=== PATIENT | female | born 1980 | race Caucasian/White ===

== ENCOUNTER → 2017-04-05 15:10 | Observation (INO) ==
[2017-04-05 12:56] LABS: Bilirubin,Urine Negative (Negative); Blood,Urine Negative (Negative); Clarity,Urine Clear (Clear); Color,Urine Yellow (Yellow); Glucose,Urine (UA) Normal (Normal); Ketones,Urine Negative (Negative); Leukocyte Esterase,Urine Moderate (Negative); Nitrite,Urine Negative (Negative); Protein,Urine Trace mg/dL (Neg-Trace); Urobilinogen,Urine Normal (Normal)
--- NOTE | 2017-04-05 12:56 | OB/GYN Progress Note ---
Date of Encounter: 04/05/17 Time of Encounter: 12:53 - Assessment and Plan (1) with 37 or more completed weeks gestation Current Visit: Yes Status: Acute (2) related low back pain in third trimester, antepartum Current Visit: Yes Status: Acute Subjective - Subjective Principal diagnosis: gestation at 37;Low back pain Interval history: Patient is a 36F at 37+1 GA with PMHx of IUGR fetus and patient has brain tumors presenting to L&D for low back pain that has been going on for 5 days. Patient states the pain is stabbing/aching, came on gradually and worsened by movement. Patient denies any numbness or tingling in the lower extremities and no difficulty with bowel or bladder incontinence or ambulation. Patient reports positive movement. Denies headache, vision changes, epigastric pain or edema. Denies vaginal bleeding. Denies gush of fluid, states she has noticed some clear fluid when she sneezes or coughs. Denies feeling contractions. Antepartum ROS: new complaints, movement normal, no loss of fluid, no vaginal bleeding, no contractions Objective - Vital Signs Vital Signs: Intake and Output 04/04/17 04/05/17 04/05/17 23:59 07:59 15:59 Other: Weight 74.2 kg Patient Weight 04/05/17 23:59 Weight 74.2 kg - Exam FHR: auscultation normal, category 1 FHR comments: FHR 125 bpm moderate variability +15x15 accels no decels noted. Cat. 1 tracing. Auscultation: bilateral: normal Abdomen: Present: normal appearance, soft, gravid Uterus: Present: normal, firm Cervical dilation: 2-3 Cervix effacement: 60 Comments: I examined this patient and my medical decision-making was reviewed with the Resident Physician. I agree with the documented findings, disposition and treatment plan as described except to the extent set forth below. SHAILA Lagunas
[2017-04-05 13:13] LABS: Amphetamine Screen,Urine Negative ng/mL (Cutoff=1000); Barbiturate Screen,Urine Negative ng/mL (Cutoff=200); Benzodiazepines Screen,Urine Negative ng/mL (Cutoff=200); Cannabinoid Screen,Urine Negative ng/mL (Cutoff = 50); Cocaine Screen,Urine Negative ng/mL (Cutoff= 300); Opiate Screen,Urine Negative ng/mL (Cutoff=300); Phencyclidine Screen,Urine Negative ng/mL (Cutoff=25)
[2017-04-05 13:15] LABS: Bacteria,Urine Many per hpf (None-Few); Mucus,Urine Few (Few); Squamous Epithelial Cell,Urine Many per lpf (None-Few)
[2017-04-05 13:16] LABS: Amorphous Sediment,Urine Few (Few); WBC,Urine 0-3 per hpf (0-3)
--- NOTE | 2017-04-05 15:04 | Discharge Summary ---
Date of Encounter: 04/05/17 Time of Encounter: 15:03 - Discharge Diagnosis (1) with 37 or more completed weeks gestation Priority: Primary Status: Acute Comments: patient admitted for observation (2) related low back pain in third trimester, antepartum Priority: Secondary Status: Acute Comments: r/o labor false labor at this time (3) NST (non-stress test) reactive on surveillance Priority: Secondary Status: Acute Comments: baseline 125 bpm moderate variability +15x15 accels no decels Cat. 1 tracing - Discharge Medications Home Medications: Ferrous Sulfate [Iron] 1 tab PO BID 04/05/17 [History] Vit Calc,Iron,Folic [ Vitamins] 1 tab PO DAILY 04/05/17 [ History] Allergies/Adverse Reactions: 3 Allergy/AdvReac Type Severity Reaction Status Date / Time No Known Allergies Allergy Verified 04/05/17 12:18 Data Procedures and tests throughout hospitalization: Laboratory Tests 04/05/17 04/05/17 12:39 12:39 Urine Color Yellow Urine Clarity Clear Urine pH 7.0 Ur Specific [place] 1.020 Urine Protein Trace Urine Glucose (UA) Normal Urine Ketones Negative Urine Blood Negative Urine Nitrite Negative Urine Bilirubin Negative Urine Urobilinogen Normal Ur Leukocyte Esterase Moderate H Urine Microscopic WBC 0-3 Ur Squamous Epith Cells Many H Amorphous Sediment Few Urine Bacteria Many H Urine Mucus Few Ur Culture Indicated? YES A Urine Opiates Screen Negative Ur Barbiturates Screen Negative Ur Phencyclidine Scrn Negative Ur Amphetamines Screen Negative U Benzodiazepines Scrn Negative Urine Cocaine Screen Negative U Marijuana (THC) Screen Negative Labs on day of discharge: Labs from last 24 hours 04/05/17 04/05/17 12:39 12:39 Urine Color Yellow Urine Clarity Clear Urine pH 7.0 Ur Specific [place] 1.020 Urine Protein Trace Urine Glucose (UA) Normal Urine Ketones Negative Urine Blood Negative Urine Nitrite Negative Urine Bilirubin Negative Urine Urobilinogen Normal Ur Leukocyte Esterase Moderate H Urine Microscopic WBC 0-3 Ur Squamous Epith Cells Many H Amorphous Sediment Few Urine Bacteria Many H Urine Mucus Few Ur Culture Indicated? YES A Urine Opiates Screen Negative Ur Barbiturates Screen Negative Ur Phencyclidine Scrn Negative Ur Amphetamines Screen Negative U Benzodiazepines Scrn Negative Urine Cocaine Screen Negative U Marijuana (THC) Screen Negative Date of admission: 04/05/17 11:45 Primary care physician: Fernie Overton Discharging clinician: Lauren Bowen Anticipated date of discharge: 04/05/17 - Patient Status Disposition: Home, Self-Care Condition: Good - Discharge Instructions Follow Up With: Fernie Overton DO [Primary Care Provider] - Alysha Schwartz MD [Partnered Physician] - - Diet and Activity Activity: increase activity as tolerated Diet: regular diet Hospital Course [facility] Time Attestation: Total time spent providing and/or coordinating discharge services: Time Spent: Less than 30 minutes Exam - Constitutional General appearance IM: A&O X 3, pleasant, answers questions appropriately - VTE Reasons for not Prescribing Prophylaxis: Treatment not Indicated - Low risk for VTE
== END | disposition home or self-care (01) ==
LOC: 1NENULAB
PROVIDERS: ADMIT Obstetrics & Gynecology; ATTEND Obstetrics & Gynecology

== ENCOUNTER 2017-04-16 12:35 | Inpatient (IN) ==
[2017-04-16] MEDS ORDERED: Naloxone 0.4 MG/ML INJ IVP PRN (13:11)
[2017-04-16] MEDS ORDERED: Famotidine 20 MG/2 ML VIAL IVP PRN (13:11)
[2017-04-16] MEDS ORDERED: Ondansetron 4 MG/2 ML VIAL IVP PRN (13:11)
[2017-04-16] MEDS ORDERED: Penicillin G Potassium 5,000,000 UNIT in 0.9 % Sodium Chloride Mini Bag 100 ML IVPB ONE (13:14)
[2017-04-16 13:26] LABS: Basophils % 0.4 %; Hematocrit 34.7 % (35.3-44.9); Hemoglobin 11.4 g/dL (11.5-15.4); Immature Granulocytes % 0.4 % (0-4); Lymphocytes # 0.8 K/mcL (0.6-4.6); Lymphocytes % 11.9 %; Mean Corpuscular HGB Conc 32.9 g/dL (31.6-35.5); Mean Corpuscular Hemoglobin 28.9 pg (28.0-33.3); Mean Corpuscular Volume 88.1 fL (83.0-100.0); Mean Platelet Volume 11.8 fL (9.4-12.4); Monocytes # 0.7 K/mcL (0.0-1.3); Monocytes % 10.3 %; Neutrophils # 5.2 K/mcL (1.6-8.9); Platelet Count 182 K/mcL (140-400); Red Blood Count 3.94 M/mcL (3.82-4.97); Red Cell Distribution Width 14.3 % (11.5-14.5)
[2017-04-16] MEDS ORDERED: Oxytocin 20 units/ LR 1000 mL 20 UNIT/1,000 ML BAG IVC SCH (13:45)
--- NOTE | 2017-04-16 14:14 | OB/GYN History & Physical ---
Date of Encounter: 04/16/17 Time of Encounter: 14:12 Assessment and Plan (1) IUGR (intrauterine growth restriction) affecting care of mother Current visit: Yes Status: Acute Admit to labor and delivery for IOL due to abnormal umbilical artery dopplers in the presence of IUGR at 38w5d. Plan for cytotec induction. GBS positive: PNC ppx. Anesthesia consulted for assessment and plan related to meningiomas. POC per Dr. Jeffers Qualifiers: Fetus number: single or unspecified fetus Trimester: third trimester Qualified Code(s): O36.5930 - Maternal care for other known or suspected poor growth, third trimester, not applicable or unspecified (2) 38 weeks gestation of Current visit: Yes Status: Acute (3) Meningioma, multiple Current visit: Yes Status: Acute History of Present Illness HPI: Ms. Miranda is a 36 year old female presenting for IOL due to elevated dopplers on ultrasound today. SHe has been followed for IUGR with NST's and BPP' s with dopplers since 36 weeks when she had a growth scan for S<D that showed EFW 2333 grams 5lb 2oz 18.9%, fetus is IUGR, AC<10%. Today her umbilical artery dopplers were 95% with S/D ratio 3.05 and RI 0.67. BPP was 8/8. This has also been complicated by a subjectively dilated aorta on anatomy US and maternal meningioma. She saw M for the dilated aorta and there was no dilation noted on their US. The patient was also seen by neurology for history of meningioma. She had an MRI in this that showed a right occipital meningioma measuring 12mm as well as a smaller meningioma arising from the posterior superior falx just right of the midline. Today she reports feeling well with no complaints. Good FM. Blood type O positive Rubella immune Serologies negative Glucola 140, 3 hour GTT normal GBS POSITIVE Past Med Surg Social Fam HX - Past Medical History Medical history: hyperlipidemia, migraine Psychiatric history: no psych history - Past Surgical History Surgical History: appendectomy - Social History Smoking Status: Never smoker Smokeless Tobacco Status: No Alcohol use: none Drug use: none - Family History Mother Adopted: No Living Status: Hx Family Cardiac Disorders: No Hx Family Respiratory Disorders: No Hx Family Cancer: Yes (Brain) Hx Family GI Disorders: No Hx Family Genitourinary Disorders: No Hx Family Endocrine Disorder: No Hx Family Musculoskeletal Disorders: No Hx Family Neuromuscular Disorders: No Hx Family Neurologic Disorders: No Hx Family HEENT Disorders: No Hx Family Autoimmune Disorders: No Hx Family Reproductive Disorders: No Hx Family Psychosocial Disorders: No Hx Family Medical Disorders: No Obstetrical History - Pregnancies : 1 Medications and Allergies Ferrous Sulfate [Iron] 1 tab PO BID 04/05/17 [History] Vit Calc,Iron,Folic [ Vitamins] 1 tab PO DAILY 04/05/17 [ History] 3 Allergy/AdvReac Type Severity Reaction Status Date / Time No Known Allergies Allergy Verified 04/05/17 12:18 Review of System OB All systems PM: reviewed and no additional remarkable complaints except as stated Exam - Constitutional Constitutional: well developed, well nourished, no acute distress - HEENT HEENT: Mucus Membranes Moist - Lungs Respiratory exam: CTAB - Cardiovascular Cardiovascular exam: RRR, +S1, +S2 - Abdomen Abdomen: Present: gravid, non tender - Extremities Extremities exam: normal inspection, pedal edema (mild edema bilaterally) - Vagina Vagina: Present: normal moisture - Cervix Dilation: 3 (in office per Dr. Schwartz) - Anus/Rectum Anus/Rectum: Present: normal perianal skin Results Result Diagrams: 04/16/17 13:10 Abnormal lab results Hgb 11.4 g/dL (11.5-15.4) L 04/16/17 13:10 Hct 34.7 % (35.3-44.9) L 04/16/17 13:10 All other labs normal. - VTE Reasons for not Prescribing Prophylaxis: Treatment not Indicated - Low risk for VTE
[2017-04-16] MEDS: Ringers Solution, Lactated 1,000 ML IVC SCH ×2 (14:54→22:02)
[2017-04-16 15:33] LABS: Amphetamine Screen,Urine Negative ng/mL (Cutoff=1000); Barbiturate Screen,Urine Negative ng/mL (Cutoff=200); Benzodiazepines Screen,Urine Negative ng/mL (Cutoff=200); Cannabinoid Screen,Urine Negative ng/mL (Cutoff = 50); Cocaine Screen,Urine Negative ng/mL (Cutoff= 300); Opiate Screen,Urine Negative ng/mL (Cutoff=300); Phencyclidine Screen,Urine Negative ng/mL (Cutoff=25)
[2017-04-16] MEDS ORDERED: miSOPROStol 100 MCG TABLET PO STA (15:58)
[2017-04-16] MEDS: Penicillin G Potassium 2,500,000 UNIT in D5% in Water 100 ML IVPB SCH ×2 (19:23→23:19)
[2017-04-16] MEDS ORDERED: GuaiFENesin Liq 200 MG/10 ML UDC PO PRN (19:37)
[2017-04-16] MEDS: Oxytocin 20 units/ LR 1000 mL 20 UNIT/1,000 ML BAG IVC SCH (20:46)
[2017-04-16] MEDS ORDERED: Acetaminophen 325 MG TABLET PO ONE (21:44)
[2017-04-17] MEDS: *HR* Nalbuphine 20 MG/ML AMPUL IVP PRN ×2 (00:22→02:39)
--- NOTE | 2017-04-17 01:41 | OB Labor Progress Note ---
Date of Encounter: 04/17/17 Time of Encounter: 01:39 Labor Progress Note - Subjective Subjective: Pt reports pain has improved with Nubain. - Cervix Cervix: 4-5/90/-1 - Heart Tones Heart Tones: Category I - [place]: 1.5-2.5 minutes - Interventions Interventions: AROM for moderate amount clear fluid. IUPC and FSE placed. - Plan Plan: Continue to monitor and titrate pitocin. Pt may have second dose of Nubain when needed. Anticipate .
[2017-04-17] MEDS: Penicillin G Potassium 2,500,000 UNIT in D5% in Water 100 ML IVPB SCH (04:33)
[2017-04-17] MEDS ORDERED: *HR* FentaNYL (PF) 100 MCG/2 ML VIAL IVP ONE (05:16)
[2017-04-17] MEDS ORDERED: *HR* FentaNYL (PF) 250 MCG/5 ML VIAL ONE (05:32)
[2017-04-17] MEDS ORDERED: Lidocaine 1% 20 ML MDV ONE (05:42)
--- NOTE | 2017-04-17 06:17 | OB/GYN Procedure Note ---
Delivery - Delivery Date: 04/17/17 Provider: Tati Klein Intrapartum events: none Delivery induction: misoprostol Delivery augmentation: rupture of membranes, pitocin Delivery monitor: internal FHT, internal uterine Anesthesia: intravenous Estimated Blood Loss: 400 - Infant (s) A Infant Delivery Date: 04/17/17 Delivery Time: 05:52 Position: RUTH Route of delivery: Gender: Female Viability: Viable Pounds: 6 Ounces: 8 Weight Gram: 2950 kg at 1 minute: 8 at 5 mins: 9 Shoulder Dystocia: not encountered Specimens collected: cord blood Placenta: spontaneous Cord: 3 umbilical vessels, nuchal reduced (nuchal x2 loose) - Repair Episiotomy: none Laceration Description: None - Complications Delivery complications: uterine atony Delivery comments: Pt progressed to complete and pushed effectively to over intact perineum for viable female "Alia" weighing 6lbs 8oz with apgars 8 at one minute and 9 at five minutes. After pulsations ceased the cord was clamped and cut and the placenta delivered spontaneous and intact. Some uterine atony was noted following delivery of the placenta and one dose of IM Methergine was given in addition to pitocin. Bimanual compression was held until the atony resolved. EBL 400ml. Mother and baby stable in kangaroo care following delivery. - Disposition Mom disposition: stable in LDR [place] disposition: stable in LDR
[2017-04-17] MEDS: Oxytocin 20 units/ LR 1000 mL 20 UNIT/1,000 ML BAG IVC SCH (06:36)
[2017-04-17] MEDS ORDERED: Benzocaine/Menthol 56 GM AEROSOL SPRAY TP PRN (09:03)
[2017-04-17] MEDS ORDERED: Methylergonovine 0.2 MG/ML AMPUL IM ONE (09:03)
[2017-04-17] MEDS ORDERED: Lanolin 28 GM TUBE TP PRN (09:03)
[2017-04-17] MEDS ORDERED: Measles/Mumps/Rubella Vacc 0.5 ML VIAL SQ PRN (09:03)
[2017-04-17] MEDS ORDERED: Acetaminophen 325 MG TABLET PO PRN (09:03)
[2017-04-17] MEDS ORDERED: Oxytocin 20 units/ LR 1000 mL 20 UNIT/1,000 ML BAG IVC SCH (09:03)
[2017-04-17] MEDS: Prenatal Vit/FA 1 EACH TABLET PO SCH (09:18)
[2017-04-17] MEDS ORDERED: Famotidine 20 MG TABLET PO PRN (09:30)
[2017-04-17] MEDS ORDERED: Lanolin 7 G OINT...G. TP PRN (10:00)
[2017-04-17] MEDS: Ibuprofen 600 MG TABLET PO PRN (20:30)
[2017-04-18] MEDS: Ibuprofen 600 MG TABLET PO PRN (09:03)
[2017-04-18] MEDS: Prenatal Vit/FA 1 EACH TABLET PO SCH (09:04)
[2017-04-18 09:10] VITALS: BP 127/86
--- NOTE | 2017-04-18 09:15 | Discharge Summary ---
Date of Encounter: 04/18/17 Time of Encounter: 09:12 - Discharge Diagnosis (1) Status post vaginal delivery Priority: Primary Status: Acute Comments: Pt doing well on PPD#1 s/p Pain controlled. Ambulating well, tolerating po intake, voiding well Pt may be discharged home (2) IUGR (intrauterine growth restriction) affecting care of mother Priority: Secondary Status: Acute Qualifiers: Fetus number: single or unspecified fetus Trimester: third trimester Qualified Code(s): O36.5930 - Maternal care for other known or suspected poor growth, third trimester, not applicable or unspecified (3) 38 weeks gestation of Priority: Secondary Status: Acute (4) Meningioma, multiple Priority: Secondary Status: Acute - Discharge Medications Prescriptions: Lanolin [Lansinoh] 1 appl TP Q4HR PRN #1 oint...g. PRN Reason: Ibuprofen [Motrin] 600 mg PO Q6HR PRN #60 tablet PRN Reason: Cramping Benzocaine/Menthol [place] [Dermoplast [place]] 1 appl TP QID PRN #1 aerosol PRN Reason: See Comments Docusate [Colace] 100 mg PO BID #60 capsule Home Medications: Ferrous Sulfate [Iron] 1 tab PO BID 04/05/17 [History] Vit Calc,Iron,Folic [ Vitamins] 1 tab PO DAILY 04/05/17 [ History] Benzocaine/Menthol [place] [Dermoplast [place]] 1 appl TP QID PRN #1 aerosol [Rx] Docusate [Colace] 100 mg PO BID #60 capsule 04/18/17 [Rx] Ibuprofen [Motrin] 600 mg PO Q6HR PRN #60 tablet 04/18/17 [Rx] Lanolin [Lansinoh] 1 appl TP Q4HR PRN #1 oint...g. 04/18/17 [Rx] Allergies/Adverse Reactions: 3 Allergy/AdvReac Type Severity Reaction Status Date / Time No Known Allergies Allergy Verified 04/05/17 12:18 Data Procedures and tests throughout hospitalization: Laboratory Tests 04/16/17 04/16/17 13:10 15:10 WBC 6.7 RBC 3.94 Hgb 11.4 L Hct 34.7 L MCV 88.1 MCH 28.9 MCHC 32.9 RDW 14.3 Plt Count 182 MPV 11.8 Immature Gran % 0.4 Seg Neutrophils % 77.0 Lymphocytes % 11.9 Monocytes % 10.3 Eosinophils % 0.0 Basophils % 0.4 Neutrophils # 5.2 Lymphocytes # 0.8 Monocytes # 0.7 Eosinophils # 0.0 Basophils # 0.0 Urine Opiates Screen Negative Ur Barbiturates Screen Negative Ur Phencyclidine Scrn Negative Ur Amphetamines Screen Negative U Benzodiazepines Scrn Negative Urine Cocaine Screen Negative U Marijuana (THC) Screen Negative Date of admission: 04/16/17 12:35 Primary care physician: Fernie Overton Consults: 04/17/17 09:03 Consult to [facility] [CONS] Routine Comment: Vaginal delivery, consult needed Discharging clinician: Misael Mackenzie Anticipated date of discharge: 04/18/17 - Patient Status Disposition: Home, Self-Care Condition: Good Functional capacity at discharge: independent ambulation Overall status at discharge: patient is progressing back to baseline - Discharge Instructions Follow Up With: Fernie Overton DO [Primary Care Provider] - Additional Instructions: Take your medications as prescribed Feed your baby every 2-3 hours Follow-up with OB in 6 weeks Perineal Care: Always wipe front to back Change your pad frequently Use your amee bottle with warm water and spray front to back Do not douche, use tampons, have sexual intercourse or put anything in your vagina for 4-6 weeks after delivery Bleeding: Vaginal bleeding can last up to 6 weeks Your menstrual period may return as early as 6 weeks after you are discharged from the hospital Elida/Stitches Care: Vaginal Delivery Vaginal stitches will dissolve within 4-6 weeks Follow perineal care instructions Care Stitches will dissolve on their own If you have elida, they will need to be removed in the doctors office within 5-7 days. You may shower with stitches or elida Drip plan or soapy water over the incision to clean. Pat dry gently with a clean towel. Make sure you completely dry under the skin folds DO NOT USE powders, lotions, rubbing alcohol or hydrogen peroxide on or around your incision. This will slow your wound healing It is normal to have soreness, burning, tingling, itchiness and/or numbness as your incision heals Activity: Rest frequently Do not lift anything heavier than a gallon of milk, up to 10-15 pounds No driving for 1-2 weeks for Vaginal delivery No driving for 2-4 weeks for delivery Take stairs slowly, one at a time Gradually increase your daily activity until you are back to your normal routine Do not exercise until you have had your follow-up appointment Bathing: Take a shower daily Do not take a tub bath for the first 4 weeks Diet: Drink plenty of water and fruit juices Eat a well-balanced diet with foods high in fiber such as fruits and vegetables Depression: Your hormones have a major impact on your feelings and emotions. Hormone imbalance may cause changes in your mood, creating unfamiliar thoughts and actions. Support is available to help you understand and cope with these feelings and mood changes. If you answer yes to any of the following questions, please call your health care provider: Are you having trouble sleeping? Are you feeling isolated? Have you lost your appetite? Are you having thoughts of hurting yourself or others? WARNING SIGNS: Heavy bleeding from the vagina (blood is bright red and soaks a sanitary pad in an hour or less.) Passing a blood clot larger than your fist Discharge from the vagina that has a bad odor Temperature over 100.4 F, or if you feel cold and have chills An episiotomy site that is warm, swollen or oozing. Use a mirror if needed Urination (pee) that is painful, very red and swollen or leaking fluid An incision that is painful, very red and swollen and leaking fluid An incision that has come open Breasts that are painful or full with flu like symptoms Redness, warmth or swelling in the calf of your leg Trouble breathing, dizziness, visual disturbance or faintness *Notify your health care provider immediately or go to the nearest Emergency Room if you experience any of the above signs.* To contact the nurses station 24 hours a day, For non-urgent, routine questions, please call the office at - Diet and Activity Activity: increase activity as tolerated Diet: advance to your usual diet Hospital Course Reason for admission: induction of labor (secondary to IUGR) Delivery: Episiotomy: none Laceration: none Other procedures: none complications: uterine atony (received methergine) Discharge diagnosis: IUP at term delivered baby: female Hospital course: - Delivery Date: 04/17/17 Provider: Tati Klein Intrapartum events: none Delivery induction: misoprostol Delivery augmentation: rupture of membranes, pitocin Delivery monitor: internal FHT, internal uterine Anesthesia: intravenous Estimated Blood Loss: 400 - (s) A Infant Delivery Date: 04/17/17 Delivery Time: 05:52 Position: RUTH Route of delivery: Gender: Female Viability: Viable Pounds: 6 Ounces: 8 Weight Gram: 2950 kg at 1 minute: 8 at 5 mins: 9 Shoulder Dystocia: not encountered Specimens collected: cord blood Placenta: spontaneous Cord: 3 umbilical vessels, nuchal reduced (nuchal x2 loose) - Repair Episiotomy: none Laceration Description: None - Complications Delivery complications: uterine atony Pt doing well and meeting milestones. She can be discharged home. Time Attestation: Total time spent providing and/or coordinating discharge services: Time Spent: Less than 30 minutes Exam - Constitutional Vitals: Temp Pulse Resp BP Pulse Ox 97.5 F L 72 16 127/86 98 04/18/17 09:09 04/18/17 09:09 04/18/17 09:09 04/18/17 09:09 04/18/17 09:09 General appearance IM: A&O X 3, no acute distress - Respiratory Respiratory exam: Present: CTAB - Cardiovascular Cardiovascular exam IM: Present: RRR, +S1, +S2 - GI/Abdominal GI/Abdominal exam IM: normal bowel sounds, soft, no peritoneal signs - Uterine Tone: Firm Uterus Position: 2 Fingers Below Umbilicus - Extremities Exam Extremities exam IM: Present: normal capillary refill, normal inspection - Neurological Exam Neurological exam: alert, no focal deficits - Psychiatric Additional comments: Pt reports good mood
[2017-04-18] MEDS ORDERED: Methylergonovine 0.2 MG/ML AMPUL IM ONE (16:59)
== END 2017-04-18 17:00 | disposition home or self-care (01) | DRG 775 ==
LOC: 1NENULAB 12:35 → 1NENUOBS 04-17 07:56
PROVIDERS: ADMIT Obstetrics & Gynecology; ATTEND Obstetrics & Gynecology

== ENCOUNTER 2022-02-15 14:26 | Inpatient (IN) ==
[2022-02-15 13:13] LABS: Basophils # 0.1 K/mcL (0.0-0.2); Basophils % 0.6 %; Eosinophils # 0.3 K/mcL (0.0-0.6); Eosinophils % 2.1 %; Hematocrit 35.7 % (35.3-44.9); Hemoglobin 11.9 g/dL (11.5-15.4); Lymphocytes # 2.2 K/mcL (0.6-4.6); Lymphocytes % 15.4 %; Mean Corpuscular HGB Conc 33.3 g/dL (31.6-35.5); Mean Corpuscular Hemoglobin 29.5 pg (28.0-33.3); Mean Corpuscular Volume 88.6 fL (83.0-100.0); Mean Platelet Volume 10.3 fL (9.4-12.4); Monocytes # 1.5 K/mcL (0.0-1.3); Monocytes % 10.3 %; Neutrophils # 10.2 K/mcL (1.6-8.9); Platelet Count 311 K/mcL (140-400); Red Blood Count 4.03 M/mcL (3.82-4.97); Red Cell Distribution Width 14.4 % (11.5-14.5); Segmented Neutrophils % 70.6 %; White Blood Count 14.4 K/mcL (4.3-11.1)
[2022-02-15 13:45] LABS: Creatinine,Urine 29 mg/dL; Protein/Creatinine Ratio,Urine 0.17 mg/mg (0.00-0.20)
[2022-02-15 13:48] LABS: Alanine Aminotransferase 9 Units/L (7-52); Aspartate Amino Transferase 15 Units/L (13-39); BUN/Creatinine Ratio 7 (6-26); Blood Urea Nitrogen 5 mg/dL (6-20); Lactate Dehydrogenase 136 Units/L (140-271); Uric Acid 5.6 mg/dL (2.3-7.6)
[~2022-02-15 14:26] MED LIST: *HR* Labetalol 20 MG/4 ML SYRINGE IVP ONE; *HR* Nalbuphine 10 MG/ML AMPUL IV PRN; Famotidine 20 MG/2 ML VIAL IVP PRN; Lidocaine 1% 20 ML MDV INFILT PRN; Metoclopramide 10 MG/2 ML VIAL IVP PRN; Naloxone 0.4 MG/ML INJ IVP PRN; Penicillin G Potassium 5,000,000 UNIT in 0.9 % Sodium Chloride Mini Bag 100 ML IVPB ONE; Ringers Solution, Lactated 1,000 ML IVC SCH; Ringers Solution, Lactated 1,000 ML ONE; miSOPROStoL 25 MCG TABLET PO PRN
[2022-02-15 14:28] LABS: Amphetamine Screen,Urine Negative ng/mL (Cutoff=1000); Barbiturate Screen,Urine Negative ng/mL (Cutoff=200); Benzodiazepines Screen,Urine Negative ng/mL (Cutoff=200); Cannabinoid Screen,Urine Negative ng/mL (Cutoff = 50); Cocaine Screen,Urine Negative ng/mL (Cutoff= 300); Opiate Screen,Urine Negative ng/mL (Cutoff=300); Phencyclidine Screen,Urine Negative ng/mL (Cutoff=25)
[2022-02-15] MEDS ORDERED: Penicillin G Potassium 2,500,000 UNIT/105 ML MLS IVPB SCH (18:00)
[2022-02-15] MEDS ORDERED: Epidural Premix (fent/bupiv) 110 ML EP ONE (18:35)
[2022-02-15] MEDS ORDERED: *HR* FentaNYL (PF) 100 MCG/2 ML VIAL ONE (18:36)
[2022-02-15] MEDS ORDERED: Ropivacaine/PF 0.2% 20 ML VIAL ONE (18:36)
[2022-02-15] MEDS ORDERED: EPHEDrine sulfate 50 MG/10 ML VIAL IVP PRN (18:40)
[2022-02-15] MEDS ORDERED: Epidural Premix (fent/bupiv) 110 ML EP SCH (18:45)
[2022-02-15] MEDS ORDERED: Oxytocin 30 UNIT/503 ML BAG IVC SCH (19:45)
[2022-02-16] MEDS ORDERED: Rho Immune Globulin 1,500 UNIT SYRINGE IM PRN (01:53)
[2022-02-16] MEDS ORDERED: OXYTOCIN/RINGERS LACTATE 10 UNIT/166.6 ML BAG IVC ONE (01:53)
[2022-02-16] MEDS ORDERED: Ondansetron ODT 4 MG TAB.RAPDIS SL PRN (01:53)
[2022-02-16] MEDS ORDERED: Benzocaine/Menthol 56 GM AEROSOL SPRAY TP PRN (01:53)
[2022-02-16] MEDS ORDERED: Oxytocin 30 UNIT/503 ML BAG IVC SCH (01:53)
[2022-02-16] MEDS ORDERED: Lanolin 7 G OINT...G. TP PRN (01:53)
[2022-02-16] MEDS: Acetaminophen 325 MG TABLET PO SCH ×3 (08:15→22:44)
[2022-02-16] MEDS: Prenatal Vit/FA 1 EACH TABLET PO SCH (08:15)
[2022-02-16] MEDS: Ibuprofen 600 MG TABLET PO SCH ×3 (10:44→22:44)
[2022-02-16 10:52] LABS: Basophils # 0.1 K/mcL (0.0-0.2); Basophils % 0.3 %; Eosinophils # 0.2 K/mcL (0.0-0.6); Hematocrit 33.7 % (35.3-44.9); Immature Granulocytes % 0.6 % (0-4); Lymphocytes # 2.5 K/mcL (0.6-4.6); Lymphocytes % 11.4 %; Mean Corpuscular HGB Conc 32.6 g/dL (31.6-35.5); Mean Corpuscular Hemoglobin 28.9 pg (28.0-33.3); Mean Corpuscular Volume 88.5 fL (83.0-100.0); Mean Platelet Volume 10.5 fL (9.4-12.4); Monocytes # 1.6 K/mcL (0.0-1.3); Monocytes % 7.3 %; Platelet Count 307 K/mcL (140-400); Red Blood Count 3.81 M/mcL (3.82-4.97); Red Cell Distribution Width 14.2 % (11.5-14.5); Segmented Neutrophils % 79.4 %; White Blood Count 21.9 K/mcL (4.3-11.1)
[2022-02-16 10:57] LABS: Neutrophils # 17.4 K/mcL (1.6-8.9)
[2022-02-17] MEDS: Acetaminophen 325 MG TABLET PO SCH (05:24)
[2022-02-17 05:55] VITALS: O2SAT 98
[2022-02-17 07:02] VITALS: BP 134/93; PULSE 85; TEMP 97.8
[2022-02-17] MEDS ORDERED: Loratadine 10 MG TABLET PO SCH (09:00)
[2022-02-17] MEDS: Ibuprofen 600 MG TABLET PO SCH (10:43)
[2022-02-17] MEDS: Prenatal Vit/FA 1 EACH TABLET PO SCH (10:43)
== END 2022-02-17 11:36 | disposition home or self-care (01) | DRG 806 ==
LOC: 1NENULAB → 1NENUOBS 02-16 04:10
PROVIDERS: ADMIT Obstetrics & Gynecology; ATTEND Obstetrics & Gynecology